=== PATIENT | female | born 1995 | race Caucasian/White ===

== ENCOUNTER 2018-06-16 03:39 | Emergency (ER) | payer OTHER, MEDICAID ==
--- NOTE | 2018-06-16 04:16 | ERPHSYRPT ---
- History of Present Illness Time Seen by Provider: 06/16/18 04:05 Source: patient, family Exam Limitations: no limitations Patient Subjective Stated Complaint: pt states she started having occasional cramping lower abd pain yesterday and has had some bloody discharge tonight Triage Nursing Assessment: pt alert and oriented, asnwers questions approp. pt ambulaotry with steady gait ntoed. respirations nonlabored with lungs cta. abd soft and nontender to light palpation. bowel sounds present x4. para 2 1 Physician History: 22 y/o white female presents with suprapubic cramping for 2 days. light vaginal spotting began last pm. no n/v/d. pt mildly joking. no other sx. Timing/Duration: day(s), intermittent Activites at Onset: none Quality: cramping Onset Location: suprapubic Severity of Pain-Max: mild Severity of Pain-Current: mild Prior abdominal problems: none Modifying Factors: Improves With: palpation Associated Symptoms: vaginal discharge (spotting of blood), No fever, No nausea , No vomiting Allergies/Adverse Reactions: No Known Drug Allergies Allergy (Verified 06/16/18 04:04) Home Medications: No Reportable Medications [No Reported Medications] 06/16/18 [History] Hx Tetanus, Diphtheria Vaccination/Date Given: Yes Hx Influenza Vaccination/Date Given: No Hx Pneumococcal Vaccination/Date Given: No - Review of Systems Constitutional: No Symptoms Eyes: No Symptoms Ears, Nose, & Throat: No Symptoms Respiratory: No Symptoms Cardiac: No Symptoms Abdominal/Gastrointestinal: Abdominal Pain (suprapubic) Genitourinary Symptoms: Vaginal Bleeding Musculoskeletal: No Symptoms Skin: No Symptoms Neurological: No Symptoms Psychological: No Symptoms Endocrine: No Symptoms Hematologic/Lymphatic: No Symptoms Immunological/Allergic: No Symptoms All Other Systems: Reviewed and Negative - Past Medical History Pertinent Past Medical History: Yes Neurological History: No Pertinent History ENT History: No Pertinent History Cardiac History: No Pertinent History Respiratory History: Asthma Endocrine Medical History: No Pertinent History Musculoskeletal History: No Pertinent History GI Medical History: No Pertinent History History: No Pertinent History Psycho-Social History: No Pertinent History Female Reproductive Disorders: No Pertinent History - Past Surgical History Past Surgical History: No Neuro Surgical History: No Pertinent History Cardiac: No Pertinent History Respiratory: No Pertinent History Gastrointestinal: No Pertinent History Genitourinary: No Pertinent History Musculoskeletal: No Pertinent History Female Surgical History: No Pertinent History - Social History Smoking Status: Current every day smoker How long have you smoked: 7yrs Exposure to second hand smoke: Yes Drug Use: none Patient Lives Alone: No - Female History Hx Last Menstrual Period: may Hx Now: Yes (6 weeks) Expected Date of Delivery: 02/08/19 Gestational Age: 6 weeks - Nursing Vital Signs Nursing Vital Signs: Initial Vital Signs Temperature 98.8 F 06/16/18 03:48 Pulse Rate 91 H 06/16/18 03:48 Respiratory Rate 16 06/16/18 03:48 Blood Pressure 128/72 06/16/18 03:48 O2 Sat by Pulse Oximetry 100 06/16/18 03:48 Pain Scale Pain Intensity 2 - Physical Exam General Appearance: no apparent distress, alert, anxiety Eye Exam: PERRL/EOMI, eyes nml inspection Ears, Nose, Throat Exam: normal ENT inspection, moist mucous membranes Neck Exam: normal inspection, non-tender, supple, full range of motion Respiratory Exam: normal breath sounds, lungs clear, airway intact, No chest tenderness, No respiratory distress, No accessory muscle use, No rhonchi, No wheezing, No stridor Cardiovascular Exam: regular rate/rhythm, normal heart sounds, normal peripheral pulses Gastrointestinal/Abdomen Exam: soft, tenderness (mild suprapubic), No guarding, No rebound Pelvic Exam: vaginal bleeding Rectal Exam: not done Back Exam: normal inspection, normal range of motion, No CVA tenderness, No vertebral tenderness Extremity Exam: normal inspection, normal range of motion, pelvis stable Neurologic Exam: alert, oriented x 3, cooperative, 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 Skin Exam: normal color, warm, dry Lymphatic Exam: No adenopathy SpO2 Interpretation: normal SpO2: 100 Oxygen Delivery: Room Air - Course Nursing assessment & vital signs reviewed: Yes Ordered Tests: Active Orders 24 hr Category Date Time Status Clean Catch Urine Specimen STAT Care 06/16/18 04:20 Active IV Insertion STAT Care 06/16/18 04:20 Active BMP Stat Lab 06/16/18 04:20 Completed CBC W DIFF Stat Lab 06/16/18 04:20 Completed HCG, Quantitative (Inhouse) Stat Lab 06/16/18 04:20 Completed UA W/RFX UR CULTURE Stat Lab 06/16/18 04:25 Completed Lab/Rad Data: Laboratory Result Diagrams 06/16/18 04:20 06/16/18 04:20 Laboratory Results 06/16/18 06/16/18 06/16/18 Range/Units 04:25 04:20 04:20 WBC 9.8 (4.0-10.5) K/mm3 RBC 4.31 (4.1-5.4) M/mm3 Hgb 13.1 (12.0-16.0) gm/dl Hct 40.9 (35-47) % MCV 94.9 (78-100) fl MCH 30.4 (26-32) pg MCHC 32.0 (32-36) g/dl RDW 13.0 (11.5-14.0) % Plt Count 248 (150-450) K/mm3 MPV 10.8 H (6-9.5) fl Gran % 57.6 (36.0-66.0) % Eos # (Auto) 0.21 (0-0.5) Absolute Lymphs (auto) 3.01 (1.0-4.6) Absolute Monos (auto) 0.88 (0.0-1.3) Lymphocytes % 30.7 (24.0-44.0) % Monocytes % 9.0 (0.0-12.0) % Eosinophils % 2.1 (0.00-5.0) % Basophils % 0.6 (0.0-0.4) % Absolute Granulocytes 5.63 (1.4-6.9) Basophils # 0.06 (0-0.4) Sodium 139 (137-145) mmol/L Potassium 3.5 (3.5-5.1) mmol/L Chloride 106 (98-107) mmol/L Carbon Dioxide 26 (22-30) mmol/L Anion Gap 10.2 (5-15) MEQ/L BUN 7 (7-17) mg/dL Creatinine 0.55 (0.52-1.04) mg/dL Estimated GFR > 60.0 ML/MIN Glucose 97 (74-106) mg/dL Calcium 9.3 (8.4-10.2) mg/dL Beta HCG, Quant 2158.5 mIU/ml Urine Color YELLOW (YELLOW) Urine Appearance CLEAR (CLEAR) Urine pH 6.0 (5-6) Ur Specific [place] 1.012 (1.005-1.025) Urine Protein NEGATIVE (Negative) Urine Ketones NEGATIVE (NEGATIVE) Urine Blood SMALL (0-5) Phil/ul Urine Nitrite NEGATIVE (NEGATIVE) Urine Bilirubin NEGATIVE (NEGATIVE) Urine Urobilinogen NEGATIVE (0-1) mg/dL Ur Leukocyte Esterase NEGATIVE (NEGATIVE) Urine WBC (Auto) 0-2 (0-5) /HPF Urine RBC (Auto) NONE (0-2) /HPF U Epithel Cells (Auto) RARE (FEW) /HPF Urine Bacteria (Auto) NONE (NEGATIVE) /HPF Urine Mucus (Auto) SLIGHT (NEGATIVE) /HPF Urine Culture Reflexed NO (NO) Urine Glucose NEGATIVE (NEGATIVE) mg/dL - Progress Progress: re-examined, unchanged Air Movement: good Blood Culture(s) Obtained: No Antibiotics given: No Counseled pt/family regarding: lab results, diagnosis, need for follow-up - Departure Time of Disposition: 06:27 Departure Disposition: Home Clinical Impression: Vaginal spotting, Condition: Stable Critical Care Time: No Referrals: ENRIQUE SNIDER [Primary Care Provider] - Additional Instructions: Call your telecommunications repairer today to arrange further studies such as repeat quantitative hcg or ultrasound as indicated.
[2018-06-16 04:41] LABS: BASOPHIL % 0.6 % (0.0-0.4); Basophil (Absolute #) 0.06 (0-0.4); Eosinophil % 2.1 % (0.00-5.0); Eosinophil (Absolute #) 0.21 (0-0.5); Granulocytes % 57.6 % (36.0-66.0); Hematocrit 40.9 % (35-47); Hemoglobin 13.1 gm/dl (12.0-16.0); Lymphocyte (Absolute #) 3.01 (1.0-4.6); Lymphocytes % 30.7 % (24.0-44.0); Mean Cell Volume 94.9 fl (78-100); Mean Corpuscular Hemoglobin 30.4 pg (26-32); Mean Platelet Volume 10.8 fl (6-9.5); Monocyte (Absolute #) 0.88 (0.0-1.3); Platelet Count 248 K/mm3 (150-450); Red Blood Count 4.31 M/mm3 (4.1-5.4); White Blood Count 9.8 K/mm3 (4.0-10.5)
[2018-06-16 04:56] LABS: Appearance CLEAR (CLEAR); Bilirubin NEGATIVE (NEGATIVE); Blood SMALL Ery/ul (0-5); Epithelial Cells RARE /HPF (FEW); Glucose NEGATIVE (NEGATIVE); Ketones NEGATIVE (NEGATIVE); Leukocyte Esterase NEGATIVE (NEGATIVE); Mucus SLIGHT /HPF (NEGATIVE); Nitrite NEGATIVE (NEGATIVE); Protein,Urine Dip NEGATIVE (Negative); Specific Gravity 1.012 (1.005-1.025); Urobilinogen NEGATIVE mg/dL (0-1); WBC 0-2 /HPF (0-5)
[2018-06-16 06:14] LABS: ANION GAP 10.2 MEQ/L (5-15); BLOOD UREA NITROGEN 7 mg/dL (7-17); CHLORIDE 106 mmol/L (98-107); Calcium 9.3 mg/dL (8.4-10.2); Carbon Dioxide 26 mmol/L (22-30); Creatinine 1 0.55 mg/dL (0.52-1.04); Glucose 97 mg/dL (74-106); HCG, Quantitative (Inhouse) 2158.5 mIU/ml; Potassium 3.5 mmol/L (3.5-5.1); SODIUM 139 mmol/L (137-145)
[2018-06-16 06:39] VITALS: BP 98/56; PULSE 76; O2SAT 98
== END 2018-06-16 06:42 | disposition home or self-care (01) ==
LOC: ED 03:39
DX: O26.851 Spotting complicating pregnancy, first trimester (principal); Z3A.01 Less than 8 weeks gestation of pregnancy
CPT/HCPCS: 36000; 36415; 80048; 81001; 84702; 85025; 99284

== ENCOUNTER 2021-04-15 17:02 | Observation (INO) | payer OTHER ==
[2021-04-15 18:48] LABS: BASOPHIL % 0.3 % (0.0-0.4); Basophil (Absolute #) 0.04 (0-0.4); Eosinophil % 1.1 % (0.00-5.0); Eosinophil (Absolute #) 0.15 (0-0.5); Hematocrit 38.8 % (35-47); Hemoglobin 12.4 gm/dl (12.0-16.0); Lymphocyte (Absolute #) 2.19 (1.0-4.6); Lymphocytes % 16.7 % (24.0-44.0); Mean Cell Volume 97.2 fl (78-100); Mean Corpuscular Hemoglobin 31.1 pg (26-32); Mean Platelet Volume 10.7 fl (7.5-11.0); Monocyte (Absolute #) 0.76 (0.0-1.3); Monocytes % 5.8 % (0.0-12.0); Neutrophil % 76.1 % (36.0-66.0); Platelet Count 253 K/mm3 (150-450); Red Blood Count 3.99 M/mm3 (4.1-5.4); Red Cell Distribution Width 13.8 % (11.5-14.0); White Blood Count 13.1 K/mm3 (4.0-10.5)
[2021-04-15 19:35] LABS: Amphetamine,Urine NEGATIVE (NEGATIVE); Barbiturate,Urine NEGATIVE (NEGATIVE); Benzodiazepine,Urine NEGATIVE (NEGATIVE); Cocaine,Urine NEGATIVE (NEGATIVE); Methadone,Urine NEGATIVE (NEGATIVE); Opiate,Urine NEGATIVE (NEGATIVE); PCP,Urine NEGATIVE (NEGATIVE); THC,Urine NEGATIVE (NEGATIVE)
== END 2021-04-16 08:10 | disposition home or self-care (01) ==
LOC: OB 17:02
PROVIDERS: ADMIT Family Medicine; ATTEND Family Medicine
DX: Z34.83 Encounter for supervision of other normal pregnancy, third trimester (principal); Z3A.38 38 weeks gestation of pregnancy
CPT/HCPCS: 36415; 80307; 83036; 85025; 87081; G0378

== ENCOUNTER 2022-05-19 17:59 | Inpatient (IN) | payer OTHER ==
[2022-05-19] MEDS ORDERED: PITOCIN 30 UNITS/ LR 500 ML 30 UNITS/500 ML PLAST..BAG IV SCH (18:30)
[2022-05-19] MEDS ORDERED: Lactated Ringers 1,000 ML IV SCH (18:30)
[2022-05-19] MEDS ORDERED: OMNIPEN 2 GM ONE (18:44)
[2022-05-19] MEDS ORDERED: Sodium Chloride 100ML MINI-BAG PLUS 100 ML IV ONE (18:46)
[2022-05-19] MEDS ORDERED: OMNIPEN 2 GM IV SCH (19:00)
[2022-05-19 19:33] LABS: Absolute Neutrophil Ct (ANC) 9.73 x10^3/uL (1.4-6.9); Basophil (Absolute #) 0.05 x10^3/uL (0-0.4); Eosinophil % 1.3 % (0.00-5.0); Eosinophil (Absolute #) 0.17 x10^3/uL (0-0.5); Hematocrit 37.1 % (35-47); Hemoglobin 11.8 g/dL (12.0-16.0); Lymphocyte (Absolute #) 2.17 x10^3/uL (1.0-4.6); Lymphocytes % 16.8 % (24.0-44.0); Mean Cell Volume 92.8 fL (78-100); Mean Corpuscular Hemoglobin 29.5 pg (26-32); Mean Corpuscular Hgb Concent. 31.8 g/dL (32-36); Mean Platelet Volume 10.7 fL (7.5-11.0); Monocytes % 5.4 % (0.0-12.0); Neutrophil % 75.2 % (36.0-66.0); Platelet Count 332 x10^3/uL (150-450); White Blood Count 12.9 x10^3/uL (4.0-10.5)
[2022-05-19 19:50] LABS: Amphetamine,Urine NEGATIVE (NEGATIVE); Barbiturate,Urine NEGATIVE (NEGATIVE); Benzodiazepine,Urine NEGATIVE (NEGATIVE); Cocaine,Urine NEGATIVE (NEGATIVE); Methadone,Urine NEGATIVE (NEGATIVE); Opiate,Urine NEGATIVE (NEGATIVE); PCP,Urine NEGATIVE (NEGATIVE); THC,Urine NEGATIVE (NEGATIVE)
[2022-05-19] MEDS ORDERED: XYLOCAINE 1% HCL 20 ML MDV ONE (21:04)
[2022-05-19] MEDS ORDERED: Dermoplast Spray TP PRN (21:17)
[2022-05-19] MEDS ORDERED: NORCO 5/325 MG PO PRN (21:17)
[2022-05-19] MEDS ORDERED: TUCKS TP PRN (21:17)
[2022-05-19] MEDS ORDERED: CORTISONE 1% CREAM TP PRN (21:17)
[2022-05-19] MEDS ORDERED: Anucort-HC SUPPOSITORY PR PRN (21:17)
[2022-05-19] MEDS ORDERED: XYLOCAINE 1% HCL 20 ML MDV IJ PRN (21:17)
[2022-05-19] MEDS ORDERED: Mylicon 80MG PO PRN (21:17)
[2022-05-19] MEDS ORDERED: MOTRIN 400 MG PO PRN (21:17)
[2022-05-19] MEDS ORDERED: LANSINOH 40 GM TOP PRN (21:17)
[2022-05-19] MEDS ORDERED: Dulcolax 10 MG SUPP PR PRN (21:17)
[2022-05-19] MEDS ORDERED: STADOL 2 MG IV PRN (21:24)
[2022-05-19] MEDS ORDERED: Zofran 4 MG/2 ML VIAL IV PRN (21:24)
[2022-05-19 22:11] LABS: ABO TYPING A; Antibody Screen NEGATIVE (NEGATIVE); RH TYPING POSITIVE
[2022-05-19] MEDS: Docusate Sodium 100 MG PO SCH (22:47)
[2022-05-19] MEDS ORDERED: OMNIPEN 1 GM*** 1 GM in Sodium Chloride 100ML MINI-BAG PLUS 100 ML IV SCH (23:00)
[2022-05-20 05:18] LABS: Absolute Neutrophil Ct (ANC) 15.07 x10^3/uL (1.4-6.9); Basophil (Absolute #) 0.05 x10^3/uL (0-0.4); Eosinophil % 0.3 % (0.00-5.0); Eosinophil (Absolute #) 0.06 x10^3/uL (0-0.5); Hematocrit 33.1 % (35-47); Hemoglobin 10.9 g/dL (12.0-16.0); Lymphocyte (Absolute #) 2.14 x10^3/uL (1.0-4.6); Lymphocytes % 11.7 % (24.0-44.0); Mean Cell Volume 91.9 fL (78-100); Mean Corpuscular Hemoglobin 30.3 pg (26-32); Mean Corpuscular Hgb Concent. 32.9 g/dL (32-36); Mean Platelet Volume 10.6 fL (7.5-11.0); Monocyte (Absolute #) 0.84 x10^3/uL (0.0-1.3); Monocytes % 4.6 % (0.0-12.0); Neutrophil % 82.5 % (36.0-66.0); Platelet Count 302 x10^3/uL (150-450); Red Cell Distribution Width 14.3 % (11.5-14.0); White Blood Count 18.3 x10^3/uL (4.0-10.5)
[2022-05-20] MEDS ORDERED: Adacel Vial IM ONE (10:00)
[2022-05-20] MEDS: TYLENOL EXTRA STRENGTH 500 MG PO PRN (11:36)
[2022-05-20] MEDS: Docusate Sodium 100 MG PO SCH ×2 (11:37→22:54)
[2022-05-20] MEDS: FERREX 150 PO SCH (11:37)
[2022-05-20] MEDS ORDERED: Nicoderm CQ 21 MG TOP ONE (13:11)
[2022-05-21] MEDS: TYLENOL EXTRA STRENGTH 500 MG PO PRN (07:04)
--- NOTE | 2022-05-21 08:11 | PCM.DS ---
Discharge Summary Date of Admission: 05/19/22 18:00 Admitting Physician: PASCUAL MURPHY Consults: Consults on Case 05/19/22 22:00 Notify Physician ROUTINE 05/20/22 08:08 Navigation ONCE Primary Care Provider: PASCUAL MURPHY Allergies Allergies No Known Drug Allergies Allergy (Verified 05/19/22 22:46) Hospital Summary - Hospital Course Hospital Course: pt arrived in spot labor at 38wks after SROM, very little care secondary to transportation issues according to mom. drug screen negative, b ottle feeding. mild lochia, minimal pain. no complications or concerns , CPS notified - Vitals & Intake/Output Vital Signs: Vital Signs Temperature 98.3 F 05/21/22 02:00 Pulse Rate 88 05/21/22 02:00 Respiratory Rate 18 05/21/22 02:00 Blood Pressure 122/77 05/21/22 02:00 O2 Sat by Pulse Oximetry 95 05/21/22 02:00 Intake & Output: Intake & Output 05/18/22 05/19/22 05/20/22 05/21/22 11:59 11:59 11:59 11:59 Intake Total 1999 0 Balance 1999 0 Weight 213 kg 96.615 kg - Lab Result Diagrams: 05/20/22 04:35 - Procedures and Test Procedures and Tests throughout Hospitalization: Therapy Orders & Screens 05/19/22 22:45 Standby STAT Comment: Diagnosis: IUP Discharge Exam General Appearance: no apparent distress Neurologic Exam: alert, oriented x 3 Respiratory Exam: normal breath sounds, lungs clear, No respiratory distress Cardiovascular Exam: regular rate/rhythm, normal heart sounds Gastrointestinal/Abdomen Exam: soft, No tenderness, No mass Extremity Exam: normal inspection, normal range of motion Skin Exam: normal color, warm, dry Final Diagnosis/Problem List - Final Discharge Diagnosis/Problem (1) Normal vaginal delivery Current Visit: Yes Status: Acute Assessment & Plan: routine pp care Code(s): O80 - ENCOUNTER FOR FULL-TERM UNCOMPLICATED DELIVERY - Discharge Disposition: Home, Self-Care Condition: Stable Prescriptions: No Action No Reportable Medications [No Reported Medications] Follow up with: PASCUAL MURPHY MD [Primary Care Provider] -
[2022-05-21] MEDS: FERREX 150 PO SCH (11:55)
[2022-05-21] MEDS: Docusate Sodium 100 MG PO SCH (11:55)
[2022-05-21 12:01] LABS: HBsAg Screen Negative (Negative)
[2022-05-21 16:47] VITALS: BP 125/83; PULSE 93; O2SAT 96
== END 2022-05-21 15:32 | disposition home or self-care (01) | DRG 807 ==
LOC: OB 17:59 → OBSVTOIN 18:00
PROVIDERS: ADMIT Family Medicine; ATTEND Family Medicine
PROC: 10E0XZZ Delivery of Products of Conception, External Approach (ICD-10-PCS; principal; 2022-05-19)
DX: O80 Encounter for full-term uncomplicated delivery (principal); Z37.0 Single live birth; Z3A.38 38 weeks gestation of pregnancy; Z20.828 Contact with and (suspected) exposure to other viral communicable diseases
CPT/HCPCS: 36415; 80307; 85025; 86850; 86900; 86901; 87340; 90471; 90715; 94799; 99213; J0290; J2590; A9270-GY

== ENCOUNTER 2023-06-30 11:54 | Inpatient (IN) | payer OTHER ==
[2023-06-30] MEDS ORDERED: Zofran 4 MG/2 ML VIAL IV PRN (12:40)
[2023-06-30] MEDS ORDERED: Nubain 10 MG/ML IV PRN (12:40)
[2023-06-30] MEDS ORDERED: STADOL 2 MG IV PRN (12:40)
[2023-06-30 13:13] LABS: Absolute Neutrophil Ct (ANC) 10.61 x10^3/uL (1.4-6.9); BASOPHIL % 0.4 % (0.0-0.4); Basophil (Absolute #) 0.06 x10^3/uL (0-0.4); Eosinophil % 1.3 % (0.00-5.0); Eosinophil (Absolute #) 0.18 x10^3/uL (0-0.5); Hematocrit 37.1 % (35-47); IMMATURE GRAN # 0.12 x10^3u/L (0.00-0.03); IMMATURE GRAN % 0.9 % (0.00-0.4); Lymphocyte (Absolute #) 2.16 x10^3/uL (1.0-4.6); Lymphocytes % 15.6 % (24.0-44.0); Mean Corpuscular Hemoglobin 30.1 pg (26-32); Mean Corpuscular Hgb Concent. 32.3 g/dL (32-36); Mean Platelet Volume 9.6 fL (7.5-11.0); Monocyte (Absolute #) 0.73 x10^3/uL (0.0-1.3); Monocytes % 5.3 % (0.0-12.0); Neutrophil % 76.5 % (36.0-66.0); Platelet Count 301 x10^3/uL (150-450); Red Blood Count 3.99 x10^6/uL (4.1-5.4); Red Cell Distribution Width 14.6 % (11.5-14.0); White Blood Count 13.9 x10^3/uL (4.0-10.5)
[2023-06-30] MEDS: Lactated Ringers 1,000 ML IV SCH (13:17)
[2023-06-30] MEDS ORDERED: PITOCIN 30 UNITS/ LR 500 ML 30 UNITS/500 ML PLAST..BAG IV SCH ×2 (13:30)
[2023-06-30 13:48] LABS: Amphetamine,Urine NEGATIVE (NEGATIVE); Barbiturate,Urine NEGATIVE (NEGATIVE); Benzodiazepine,Urine NEGATIVE (NEGATIVE); Cocaine,Urine NEGATIVE (NEGATIVE); Methadone,Urine NEGATIVE (NEGATIVE); Opiate,Urine NEGATIVE (NEGATIVE); PCP,Urine NEGATIVE (NEGATIVE); THC,Urine NEGATIVE (NEGATIVE)
[2023-06-30 14:01] LABS: ABO TYPING A; Antibody Screen NEGATIVE (NEGATIVE); RH TYPING POSITIVE
[2023-06-30] MEDS ORDERED: Adacel Vial IM ONE (17:16)
[2023-06-30] MEDS ORDERED: Dermoplast Spray TP PRN (17:16)
[2023-06-30] MEDS ORDERED: TUCKS TP PRN (17:16)
[2023-07-01] MEDS: Docusate Sodium 100 MG PO SCH ×3 (00:21→21:12)
[2023-07-01] MEDS: MOTRIN 400 MG PO PRN ×3 (01:13→21:13)
[2023-07-01] MEDS: Lactated Ringers 1,000 ML IV SCH (03:05)
[2023-07-01 05:37] LABS: Absolute Neutrophil Ct (ANC) 10.37 x10^3/uL (1.4-6.9); BASOPHIL % 0.5 % (0.0-0.4); Basophil (Absolute #) 0.07 x10^3/uL (0-0.4); Eosinophil % 1.2 % (0.00-5.0); Eosinophil (Absolute #) 0.17 x10^3/uL (0-0.5); Hematocrit 35.2 % (35-47); Hemoglobin 11.2 g/dL (12.0-16.0); IMMATURE GRAN # 0.15 x10^3u/L (0.00-0.03); Lymphocyte (Absolute #) 3.16 x10^3/uL (1.0-4.6); Lymphocytes % 21.6 % (24.0-44.0); Mean Cell Volume 95.7 fL (78-100); Mean Corpuscular Hemoglobin 30.4 pg (26-32); Mean Corpuscular Hgb Concent. 31.8 g/dL (32-36); Mean Platelet Volume 9.6 fL (7.5-11.0); Monocyte (Absolute #) 0.73 x10^3/uL (0.0-1.3); Neutrophil % 70.7 % (36.0-66.0); Platelet Count 280 x10^3/uL (150-450); Red Blood Count 3.68 x10^6/uL (4.1-5.4); Red Cell Distribution Width 14.6 % (11.5-14.0); White Blood Count 14.7 x10^3/uL (4.0-10.5)
[2023-07-01] MEDS: TYLENOL EXTRA STRENGTH 500 MG PO PRN ×2 (08:15→18:56)
[2023-07-01] MEDS: FERREX 150 PO SCH (13:16)
[2023-07-01 21:33] VITALS: O2SAT 95
[2023-07-02] MEDS: MOTRIN 400 MG PO PRN ×2 (04:32→04:37)
[2023-07-02] MEDS: TYLENOL EXTRA STRENGTH 500 MG PO PRN (08:42)
[2023-07-02] MEDS: Docusate Sodium 100 MG PO SCH ×2 (09:31→11:36)
[2023-07-02] MEDS: FERREX 150 PO SCH (09:31)
--- NOTE | 2023-07-02 09:47 | PCM.DS ---
Discharge Summary Date of Admission: 06/30/23 11:54 Admitting Physician: PASCUAL MURPHY Consults: Consults on Case 06/30/23 19:12 Navigation ONCE Primary Care Provider: PASCUAL MURPHY Allergies Allergies No Known Drug Allergies Allergy (Verified 07/01/23 01:11) Hospital Summary - Hospital Course Hospital Course: patient arrived in spontaneous labor at 40wks, uncomplicated vaginal delivery. normal course. patient had amphetamine positive drugs screens during x 2, negative at the time of delivery. her drug screen was negative at the time of delivery, CPS was consulted prior to discharge and met with patient. - Vitals & Intake/Output Vital Signs: Vital Signs Temperature 98.5 F 07/02/23 04:30 Pulse Rate 86 07/02/23 04:30 Respiratory Rate 17 07/02/23 04:30 Blood Pressure 125/64 07/02/23 04:30 O2 Sat by Pulse Oximetry 95 07/02/23 04:30 Intake & Output: Intake & Output 06/29/23 06/30/23 07/01/23 07/02/23 11:59 11:59 11:59 11:59 Intake Total 4400 Output Total 150 Balance -150 4400 Weight 95.708 kg - Lab Result Diagrams: 07/01/23 05:33 - Procedures and Test Procedures and Tests throughout Hospitalization: Therapy Orders & Screens 06/30/23 17:03 Standby ROUTINE Comment: Diagnosis: IUP Discharge Exam General Appearance: no apparent distress Neurologic Exam: alert Respiratory Exam: normal breath sounds, lungs clear, No respiratory distress Cardiovascular Exam: regular rate/rhythm, normal heart sounds Gastrointestinal/Abdomen Exam: soft, other (fundus firm) Extremity Exam: normal inspection Skin Exam: normal color, other Final Diagnosis/Problem List - Final Discharge Diagnosis/Problem (1) Normal vaginal delivery Current Visit: No Status: Acute Code(s): O80 - ENCOUNTER FOR FULL-TERM UNCOMPLICATED DELIVERY (2) Amphetamine abuse Current Visit: Yes Status: Acute Code(s): F15.10 - OTHER STIMULANT ABUSE, UNCOMPLICATED - Discharge Disposition: Home, Self-Care Condition: Stable Prescriptions: No Action No Reportable Medications [No Reported Medications] Follow up with: PASCUAL MURPHY MD [Primary Care Provider] - 1 month
[2023-07-02 11:59] VITALS: BP 139/81; PULSE 103; RESP 20; TEMP 97.9
== END 2023-07-02 13:33 | disposition home or self-care (01) | DRG 807 ==
LOC: OB 11:54 → OBSVTOIN 11:54
PROVIDERS: ADMIT Family Medicine; ATTEND Family Medicine
PROC: 10E0XZZ Delivery of Products of Conception, External Approach (ICD-10-PCS; principal; 2023-06-30)
DX: O80 Encounter for full-term uncomplicated delivery (principal); Z37.0 Single live birth; Z3A.40 40 weeks gestation of pregnancy; F15.10 Other stimulant abuse, uncomplicated; Z20.828 Contact with and (suspected) exposure to other viral communicable diseases
CPT/HCPCS: 36415; 80307; 85025; 86850; 86900; 86901; 90384; 90715; 94799; J2590; A9270-GY